=== PATIENT | male | born 1995 | race Caucasian/White ===

== ENCOUNTER 2020-10-03 01:10 | Emergency (ER) | payer OTHER ==
[~2020-10-03] VITALS: Ht 185.4 cm; Wt 86.2 kg
[2020-10-03 01:10] VITALS: BP 133/88
[2020-10-03] MEDS ORDERED: IBUPROFEN 400 MG TABLET ONE (01:23)
[2020-10-03] MEDS ORDERED: IBUPROFEN 400 MG TABLET PO ONE (01:30)
[2020-10-03] MEDS ORDERED: IBUP-1957 PO (02:22)
== END 2020-10-03 02:37 | disposition home or self-care (01) ==
LOC: ER 01:13
DX: S80.12XA Contusion of left lower leg, initial encounter (principal); V49.49XA Driver injured in collision with other motor vehicles in traffic accident, initial encounter; Y93.89 Activity, other specified; Y92.413 State road as the place of occurrence of the external cause; Y99.8 Other external cause status
CPT/HCPCS: 73552; 73590-TC